=== PATIENT | female | born 1995 | race Two or more races ===

== ENCOUNTER 2023-10-19 15:56 | Emergency (ER) | payer MEDICAID ==
[~2023-10-19] VITALS: Ht 149.9 cm; Wt 81.6 kg
[2023-10-19] MEDS ORDERED: HYDROCODONE/APAP 5/325MG TABLET ONE (16:29)
[2023-10-19] MEDS: HYDROCODONE/APAP 5/325MG TABLET PO ONE (16:33)
[2023-10-19] MEDS ORDERED: MORPHINE SULFATE INJ 4 MG/ML DISP.SYRIN ONE (17:41)
[2023-10-19 17:44] VITALS: TEMP 98.2
[2023-10-19] MEDS: MORPHINE SULFATE INJ 2 MG/ML DISP.SYRIN IM ONE (17:45)
[2023-10-19] MEDS ORDERED: IBUP-1955 PO (18:55)
[2023-10-19] MEDS ORDERED: HYDR-3976 GT (18:55)
[2023-10-19 20:09] VITALS: BP 119/88; O2SAT 98
== END 2023-10-19 20:10 | disposition home or self-care (01) ==
LOC: ER 16:00
DX: S99.812A Other specified injuries of left ankle, initial encounter (principal); Z79.899 Other long term (current) drug therapy; W01.0XXA Fall on same level from slipping, tripping and stumbling without subsequent striking against object, initial encounter; Y93.89 Activity, other specified; Y92.89 Other specified places as the place of occurrence of the external cause; Y99.8 Other external cause status
CPT/HCPCS: 29515; 73590; 73610; 96372; 99284; J2270